=== PATIENT | female | born 2000 | race Two or more races ===

== ENCOUNTER 2023-11-12 14:07 | Emergency (ER) | payer OTHER ==
[2023-11-12 14:16] VITALS: BMI 34.9
[2023-11-12 15:12] LABS: HEMATOCRIT 39.6 % (32.4-45.2); HEMOGLOBIN 13.9 GM/dL (10.7-15.3); MCH 30.9 pg (25.7-33.7); MEAN CELL VOLUME 88.1 fl (80-96); MEAN PLT VOLUME 8.2 fl (7.5-11.1); PLATELET COUNT 331 10^3/uL (134-434); RBC 4.49 M/mm3 (3.60-5.2); RDW 12.6 % (11.6-15.6); WHITE BLOOD COUNT 12.8 K/mm3 (4.0-10.0)
[2023-11-12] MEDS ORDERED: ACETAMINOPHEN INJECTION 100 ML ONE (15:30)
[2023-11-12 15:45] LABS: POTASSIUM 3.8 mmol/L (3.5-5.1)
[2023-11-12 15:47] LABS: ALBUMIN 4.1 g/dl (3.4-5.0); BLOOD UREA NITROGEN 10.2 mg/dL (7-18); CALCIUM 9.3 mg/dL (8.5-10.1)
[2023-11-12] MEDS: ACETAMINOPHEN 1000 MG/100 ML BAG IVPB ONE (15:50)
[2023-11-12 15:51] LABS: CREATININE 0.9 mg/dL (0.55-1.3)
[2023-11-12 15:52] LABS: BILIRUBIN,TOTAL 1.3 mg/dL (0.2-1); TOT PROT 7.8 g/dl (6.4-8.2)
[2023-11-12 16:17] LABS: URINE APPEARANCE CLEAR; URINE BILIRUBIN NEGATIVE (NEGATIVE); URINE COLOR YELLOW; URINE GLUCOSE (UA) NEGATIVE (NEGATIVE); URINE KETONE NEGATIVE (NEGATIVE); URINE LEUK ESTERASE NEGATIVE (NEGATIVE); URINE NITRITE NEGATIVE (NEGATIVE); URINE PROTEIN NEGATIVE (NEGATIVE); URINE UROBILINOGEN 0.2 mg/dL (0.2-1.0)
[2023-11-12 16:20] LABS: HCG,QUALITATIVE URINE Negative
[2023-11-12 16:36] LABS: HIV INTERPRETATION NEGATIVE (NEGATIVE)
[2023-11-12 17:33] VITALS: BP 123/70; PULSE 76; RESP 16; TEMP 98
== END 2023-11-12 17:33 | disposition home or self-care (01) ==
LOC: JER 14:07
PROC: 3E033NZ Introduction of Analgesics, Hypnotics, Sedatives into Peripheral Vein, Percutaneous Approach (ICD-10-PCS; principal; 2023-11-12)
DX: R00.2 Palpitations (principal); R42 Dizziness and giddiness; R06.02 Shortness of breath
CPT/HCPCS: 36415; 71046-TC-FY; 80053; 81003; 84443; 84484; 84703; 85027; 86803; 87389; 93005; 93010; 99285-25; J0131